=== PATIENT | female | born 1995 | race Hispanic/Latino ===

== ENCOUNTER 2017-01-25 17:03 | Inpatient (IN) ==
[2017-01-25] MEDS ORDERED: BRETHINE SUBQ PRN (17:25)
[2017-01-25] MEDS ORDERED: AMBIEN PO PRN (17:25)
[2017-01-25] MEDS ORDERED: CYTOTEC PO ONE (17:25)
[2017-01-25] MEDS ORDERED: STADOL IV PRN (17:25)
[2017-01-25] MEDS: LR 1,000 ML IV ONE (18:20)
[2017-01-25 18:41] LABS: MANUAL DIFF NEEDED? NO
[2017-01-25 18:46] LABS: BASO% 0.2 % (0.0-0.8); EOS# 0.76 X1000 (0.0-0.7); EOS% 8.5 % (0.0-10.0); HEMATOCRIT 32.3 % (37.0-47.0); HEMOGLOBIN 10.8 g/dL (12.0-16.0); IMM GRAN# 0.02 X1000 (0.0-0.04); IMM GRAN% 0.2 % (0.0-0.5); LYMPH# 2.99 X1000 (1.2-3.4); LYMPH% 33.5 % (20.5-51.1); MCH 27.3 PG (27-31); MCHC 33.4 g/dL (33-37); MCV 81.8 FL (81-99); MONO# 0.62 X1000 (0.11-0.59); MONO% 6.9 % (1.7-9.3); MPV 9.8 FL (7.4-10.4); NEUT% 50.7 % (42.2-75.2); PLT 370 X1000 (130-400); RBC 3.95 XMIL (4.2-5.4)
[2017-01-25 18:56] LABS: UR AMPHETAMINES QUAL NONE DETECTED (NONE DETECT); UR BARBITUATES QUAL NONE DETECTED (NONE DETECT); UR BENZODIAZEPIN QUAL NONE DETECTED (NONE DETECT); UR CANNABINOIDS QUAL NONE DETECTED (NONE DETECT); UR COCAINE QUAL NONE DETECTED (NONE DETECT); UR MDMA QUAL NONE DETECTED (NONE DETECT); UR METHADONE QUAL NONE DETECTED (NONE DETECT); UR METHAMPHETAMINE QUAL NONE DETECTED (NONE DETECT); UR OPIATES QUAL PRESUMPTIVE POSITIVE (NONE DETECT); UR OXYCODONE QUAL NONE DETECTED (NONE DETECT); UR PCP QUAL NONE DETECTED (NONE DETECT); UR TCA QUAL NONE DETECTED (NONE DETECT)
[2017-01-25 19:09] LABS: RPR NON-REACTIVE (NONREACTIVE)
[2017-01-25 19:17] LABS: RAPID HIV PRESUMPTIVE NEGATIVE
[2017-01-25] MEDS: STADOL IV PRN (21:21)
[2017-01-25] MEDS: CYTOTEC PO SCH (21:25)
[2017-01-25 21:37] LABS: RUBELLA SCREEN IMMUNE (IMMUNE)
[2017-01-26] MEDS: LR 1,000 ML IV ONE (00:50)
[2017-01-26] MEDS: STADOL IV PRN ×4 (02:36→15:12)
[2017-01-26] MEDS: CYTOTEC PO SCH ×3 (02:37→10:45)
[2017-01-26] MEDS ORDERED: CYTOTEC PO SCH (06:30)
--- NOTE | 2017-01-26 09:07 | HISTORY AND PHYSICAL ---
CHIEF COMPLAINT: No movement. HISTORY OF PRESENT ILLNESS: This is a 21-year-old, G2, P1-0-0-1, who presents to [place] from [facility] with no cardiac per ultrasound. The patient was seen [place] in ER yesterday evening with complaints of abdominal cramping and scant vaginal bleeding. Ultrasound performed yesterday evening revealed positive intrauterine with no cardiac activity and no amniotic fluid. Patient states vaginal bleeding has since resolved. She denies any mucopurulent or abnormal vaginal discharge. The patient denies fevers, chills, nausea, vomiting, changes in bowel or bladder habits. OBSTETRICAL HISTORY: G1, full-term vaginal delivery. G2 current. 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 PAST MEDICAL HISTORY: Denies. PAST SURGICAL HISTORY: Denies. MEDICATIONS: vitamins. ALLERGIES: No known drug allergies. SOCIAL HISTORY: Denies alcohol, tobacco, or illicit drug use. FAMILY HISTORY: Noncontributory. REVIEW OF SYSTEMS: Negative. PHYSICAL EXAMINATION: GENERAL: Well-developed, well-nourished, female, in no acute distress. HEENT: Pupils equal, round, react to light. Extraocular muscle intact. CHEST: Clear to auscultation bilaterally. CV: Regular rate and rhythm. No murmurs, rubs, or gallops. ABDOMEN: Soft, nontender, gravid. EXTREMITIES: No clubbing, cyanosis, or edema. SKIN: No focal lesions. NEUROLOGIC: No focal deficits. DIAGNOSTICS: Transabdominal ultrasound performed by myself revealed similar findings. No cardiac activity noted on color Doppler. No movement. There is no amniotic fluid noted around the fetus. ASSESSMENT AND PLAN: Intrauterine demise around 16-17 weeks by last menstrual period. PLAN: Admit patient to Labor and Delivery. We will begin Cytotec induction of labor. Risks, benefits, and alternatives were discussed with the patient including risks of bleeding, infection, and possible need for blood transfusion. Risk of potential need for suction D C was discussed as well. The patient agrees with the above stated risks and she desires to proceed forward. Patient is unsure of what sort of testing she wants done. In my opinion amniocentesis would be of low yield given the lack of amniotic fluid. Will examine the placenta and fetus post delivery. cc: Herman Guillermo MD
[2017-01-26] MEDS ORDERED: PITOCIN 30 UNITS/LR 30 UNITS/500 ML IV.SOLN IV SCH (09:19)
[2017-01-26] MEDS ORDERED: CYTOTEC VAG ONE (14:20)
[2017-01-26] MEDS: LR 1,000 ML IV SCH (21:02)
[2017-01-27] MEDS ORDERED: CYTOTEC VAG ONE ×2 (06:00→10:28)
[2017-01-27] MEDS: UNASYN 3 GM/NS 3 GM/100 ML IVPB IV SCH ×3 (06:53→19:09)
[2017-01-27 08:55] LABS: HEPATITIS B SURFACE ANTIGEN SEE COMMENTS
[2017-01-27] MEDS ORDERED: ZOFRAN IV ONE (09:02)
[2017-01-27] MEDS: STADOL IV PRN ×3 (09:06→23:24)
[2017-01-27 09:24] LABS: HIV ANTIBODY SCREEN SEE COMMENTS
[2017-01-27] MEDS: LR 1,000 ML IV SCH ×2 (14:37→23:08)
[2017-01-27] MEDS: CYTOTEC VAG SCH ×3 (15:00→23:08)
[2017-01-28] MEDS: UNASYN 3 GM/NS 3 GM/100 ML IVPB IV SCH ×2 (01:26→07:20)
[2017-01-28] MEDS ORDERED: BICITRA PO ONE (07:31)
[2017-01-28] MEDS ORDERED: PEPCID IV ONE (07:31)
[2017-01-28] MEDS ORDERED: SODIUM CHLORIDE 0.9% INJ ONE (07:31)
[2017-01-28 07:33] LABS: MANUAL DIFF NEEDED? NO
[2017-01-28 07:36] LABS: BASO% 0.3 % (0.0-0.8); EOS# 0.67 X1000 (0.0-0.7); EOS% 7.5 % (0.0-10.0); HEMATOCRIT 24.7 % (37.0-47.0); HEMOGLOBIN 8.1 g/dL (12.0-16.0); IMM GRAN# 0.01 X1000 (0.0-0.04); IMM GRAN% 0.1 % (0.0-0.5); LYMPH# 2.92 X1000 (1.2-3.4); LYMPH% 32.6 % (20.5-51.1); MCH 27.6 PG (27-31); MCHC 32.8 g/dL (33-37); MONO# 0.53 X1000 (0.11-0.59); MONO% 5.9 % (1.7-9.3); MPV 9.1 FL (7.4-10.4); NEUT% 53.6 % (42.2-75.2); PLT 299 X1000 (130-400); RBC 2.94 XMIL (4.2-5.4)
--- NOTE | 2017-01-28 08:01 | HISTORY AND PHYSICAL ---
HISTORY OF PRESENT ILLNESS: Patient is a 21-year-old, G2, P1, who presented to the ER with complaints of decreased movement. Evaluation from the day prior revealed an intrauterine at approximately 15-16 weeks with no FCA. Cardiac standstill was again confirmed at time of admission. The patient was admitted for uterine evacuation; however, despite 2 days of vaginal Cytotec, patient without progression beyond 2 cm and without delivery of uterine contents, so decision was made to proceed to the operating room for dilation and evacuation. PAST MEDICAL HISTORY: None. PAST SURGICAL HISTORY: None. OBSTETRICAL HISTORY: Term spontaneous vaginal delivery x1. GYNECOLOGICAL HISTORY: Noncontributory. PHYSICAL EXAMINATION: VITAL SIGNS: Patient afebrile. Vital signs stable. Patient in no acute distress. ABDOMEN: Soft, nontender, nondistended. CERVICAL: Cervix 2 cm. ULTRASOUND: Bedside ultrasound reveals intrauterine gestation at unknown gestational age, presumed to be 15-16 weeks. ASSESSMENT/PLAN: A 21-year-old, G2, P1, with missed at 16 weeks. We will proceed to the operating room for dilation and evacuation. cc: MD Herman Hoffman MD
[2017-01-28] MEDS ORDERED: ZOFRAN ONE (09:26)
[2017-01-28] MEDS ORDERED: DIPRIVAN 1% ONE (09:26)
[2017-01-28] MEDS ORDERED: QUELICIN ONE (09:26)
[2017-01-28] MEDS ORDERED: DECADRON ONE (09:27)
[2017-01-28] MEDS ORDERED: ROBINUL ONE (09:28)
[2017-01-28] MEDS ORDERED: TORADOL ONE (09:28)
[2017-01-28] MEDS ORDERED: FENTANYL ONE (09:41)
[2017-01-28] MEDS ORDERED: LR 1,000 ML ONE (10:02)
[2017-01-28] MEDS ORDERED: CYTOTEC ONE (10:10)
[2017-01-28] MEDS ORDERED: METHERGINE ONE (10:11)
[2017-01-28] MEDS ORDERED: PITOCIN ONE (10:13)
[2017-01-28] MEDS ORDERED: VENTOLIN HFA ONE (10:26)
[2017-01-28] MEDS ORDERED: EPHEDRINE ONE (10:33)
[2017-01-28] MEDS ORDERED: PITOCIN IM PRN (11:02)
[2017-01-28] MEDS ORDERED: PITOCIN 30 UNITS/LR 30 UNITS/500 ML IV.SOLN IV ONE (11:02)
[2017-01-28] MEDS ORDERED: NORCO-10 PO PRN (11:02)
[2017-01-28] MEDS ORDERED: HYDROXYZINE PO PRN (11:02)
[2017-01-28] MEDS ORDERED: AMBIEN PO PRN (11:02)
[2017-01-28] MEDS ORDERED: BOOSTRIX VACCINE IM ONE (11:02)
[2017-01-28] MEDS ORDERED: BENADRYL IV PRN (11:02)
[2017-01-28] MEDS ORDERED: XYLOCAINE-MPF 1% INJ PRN (11:02)
[2017-01-28] MEDS ORDERED: PERI MEDS (DERMOPLAST/NUPERCAINAL/TUCKS) MISC PRN (11:02)
[2017-01-28] MEDS ORDERED: NORCO-5 PO PRN (11:02)
[2017-01-28] MEDS ORDERED: CYTOTEC PO PRN (11:02)
[2017-01-28] MEDS ORDERED: M-M-R II VACCINE SUBQ ONE (11:02)
[2017-01-28] MEDS ORDERED: BENADRYL PO PRN (11:02)
[2017-01-28] MEDS ORDERED: MINERAL OIL PO PRN (11:02)
[2017-01-28] MEDS ORDERED: PITOCIN 20 UNITS/LR 20 UNITS/1,000 ML IV.SOLN IV SCH (11:02)
[2017-01-28] MEDS ORDERED: HYDROXYZINE IM PRN (11:02)
[2017-01-28] MEDS: LR 1,000 ML IV SCH ×2 (11:36→19:08)
[2017-01-28] MEDS ORDERED: METHERGINE PO SCH (13:00)
[2017-01-28] MEDS ORDERED: METHERGINE PO ONE (13:15)
[2017-01-28] MEDS: MOTRIN PO PRN (13:38)
--- NOTE | 2017-01-28 16:48 | OPERATIVE NOTE ---
PROCEDURE DATE: 01/28/2017 PREOPERATIVE DIAGNOSIS: Intrauterine at 15-16 weeks gestation with no cardiac activity. POSTOPERATIVE DIAGNOSIS: Missed at 15-16 weeks. PROCEDURE: Dilation and evacuation. SURGEON: Abril. ANESTHESIA: General. ESTIMATED BLOOD LOSS: 100 mL. COMPLICATIONS: None.Counts: Correct x2. Findings: Intact fetus. Moderate amount of uterine content. Complete evacuation confirmed with ultrasound guidance. INDICATIONS FOR PROCEDURE: Patient is a 21-year-old, G2, P1, with intrauterine at approximately 15-16 weeks who presented with missed AB. Cardiac standstill noted. Patient initially admitted for medical induction. However patient without progress beyond 2 cm despite 2 days of vaginal Cytotec, so decision made to proceed to the operating room for dilation and evacuation. PROCEDURE IN DETAIL: After proper informed consent was obtained, the patient was taken to the operating room and placed in the dorsal lithotomy position. The vagina was prepped and draped in a normal sterile fashion for vaginal surgery. After a proper time-out was performed, a speculum was placed into the vagina. The cervix was grasped on the anterior lip with a single-tooth tenaculum. Polyp forceps was then introduced into the uterine cavity with subsequent evacuation of intact fetus. Suction curettage was then performed with return of moderate amount of uterine content. The uterus was then evaluated using ultrasound guidance, with a thin endometrium noted. Sharp curettage was then carried out until the typical gritty feeling was appreciated for the full 360 degrees. Hemostasis was noted. All instruments were removed from the vagina. We then proceeded with uterine massage and placed 1000 mcg of Cytotec per rectum. Patient tolerated the procedure well and was transferred to recovery in stable condition. cc: MD Herman Hoffman MD
[2017-01-28] MEDS: DOXYCYCLINE PO SCH ×2 (17:03→21:11)
[2017-01-28] MEDS: CYTOTEC VAG SCH (17:20)
[2017-01-28] MEDS: METHERGINE PO SCH (19:08)
[2017-01-28] MEDS ORDERED: PERICOLACE PO SCH (21:00)
[2017-01-29] MEDS: MOTRIN PO PRN ×2 (01:11→08:21)
[2017-01-29] MEDS: METHERGINE PO SCH ×2 (01:11→07:12)
[2017-01-29 06:31] LABS: HEMATOCRIT 24.5 % (37.0-47.0); MCHC 32.7 g/dL (33-37); MCV 82.8 FL (81-99); MPV 9.9 FL (7.4-10.4); RBC 2.96 XMIL (4.2-5.4)
[2017-01-29] MEDS ORDERED: NORCO-5 ONE (08:18)
[2017-01-29] MEDS ORDERED: MOTRIN ONE (08:19)
[2017-01-29] MEDS ORDERED: DOXYCYCLINE ONE (09:30)
[2017-01-29] MEDS: DOXYCYCLINE PO SCH (09:33)
[2017-01-29 10:08] VITALS: BP 95/54
--- NOTE | 2017-01-30 05:59 | DISCHARGE SUMMARY ---
ADMISSION DATE: 01/25/2017 DISCHARGE DATE: 01/29/2017 ADMITTING DIAGNOSIS: Missed at 15 weeks. DISCHARGE DIAGNOSIS: Missed at 15 weeks. PROCEDURE: Suction dilation and evacuation. HISTORY OF PRESENT ILLNESS: Patient is a 21-year-old, G2, P1, who presented with a missed AB at 15 weeks. Patient attempted medical evacuation with Cytotec. However, failure to progress, so the decision made to proceed to the operating room for a dilation and evacuation. Please see full operative report for details. Postoperatively, the patient was transferred to the floor for routine postop care. She was started on doxycycline for prophylaxis, and Methergine. Overnight, patient with minimal bleeding, and pain well-controlled, felt to be stable for discharge home. DISCHARGE DISPOSITION: The patient is discharged home. PRIMARY PROCEDURE: Dilation and evacuation. FOLLOWUP: Patient to follow up in 1 week for postoperative visit. cc: MD Herman Hoffman MD
== END 2017-01-29 12:20 | disposition home or self-care (01) ==
LOC: P.LD 17:03
PROVIDERS: ADMIT Obstetrics & Gynecology; ATTEND Obstetrics & Gynecology